=== PATIENT | male | born 1970 | race Caucasian/White ===

== ENCOUNTER 2018-04-01 14:06 | Emergency (ER) | payer BC ==
[2018-04-01] MEDS ORDERED: Levofloxacin 500 MG Tab PO STA (15:06)
[2018-04-01] MEDS ORDERED: Diphtheria,Pertussis(Acell),Tetanus Vaccine 0.5 ML SDV IM ONE (15:06)
--- NOTE | 2018-04-01 15:09 | EDM.PDOC ---
ED HPI GENERAL MEDICAL PROBLEM - General Chief Complaint: Lower Extremity Injury/Pain Stated Complaint: Laceration left forearm Time Seen by Provider: 04/01/18 14:06 Source of Information: Reports: Patient, Family History Limitations: Reports: No Limitations - History of Present Illness INITIAL COMMENTS - FREE TEXT/NARRATIVE: 47 years old w m in prev healthy condition came to the ed with his after he injured his left forearm on a propeller an electric toy plain. 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 Pt does not take ASA or Coumadin or any other blood thinner. Pt has full ROM of his left forearm and denies any other acute medical issue. TD (? ). RIVER 146/90 RR 20 Temp 36.8 Pulse 75 Onset Date: 04/01/18 Onset Time: 13:00 Duration: Hour(s): Location: Reports: Upper Extremity, Left Quality: Reports: Ache, Burning, Dull, Stabbing Severity: Moderate Improves with: Reports: Rest Worsens with: Reports: Movement Context: Reports: Trauma Associated Symptoms: Reports: No Other Symptoms left forearn Pain Score (Numeric/FACES): 4 - Related Data Allergies Allergy/AdvReac Type Severity Reaction Status Date / Time Penicillins Allergy Anaphylactic Verified 04/01/18 14:16 Shock Home Meds: Home Meds Allopurinol [Zyloprim] 300 mg PO DAILY 04/01/18 [History] Ciprofloxacin HCl [Cipro] 500 mg PO BID #20 tablet 04/01/18 [Rx] Past Medical History Musculoskeletal History: Reports: Gout Social & Family History - Family History Family Medical History: Noncontributory - Tobacco Use Smoking Status *Q: Never Smoker - Caffeine Use Caffeine Use: Reports: Soda - Alcohol Use Days Per Week of Alcohol Use: 1 Number of Drinks Per Day: 2 Total Drinks Per Week: 2 - Recreational Drug Use Recreational Drug Use: No Review of Systems - Review of Systems Review Of Systems: See Below Constitutional: Reports: No Symptoms Eyes: Reports: No Symptoms Ears: Reports: No Symptoms Nose: Reports: No Symptoms Mouth/Throat: Reports: No Symptoms Respiratory: Reports: No Symptoms Cardiovascular: Reports: No Symptoms GI/Abdominal: Reports: No Symptoms Genitourinary: Reports: No Symptoms Musculoskeletal: Reports: No Symptoms Skin: Reports: Wound (laceration left forearm) Neurological: Reports: No Symptoms Psychiatric: Reports: No Symptoms ED EXAM, GENERAL - Physical Exam Exam: See Below Exam Limited By: No Limitations General Appearance: Alert, WD/WN, Mild Distress Eye Exam: Bilateral Eye: Normal Inspection Ears: Normal External Exam Ear Exam: Bilateral Ear: Auricle Normal Nose: Normal Inspection, Normal Mucosa Throat/Mouth: Normal Inspection, Normal Lips, Normal Gums, Normal Voice, No Airway Compromise Head: Atraumatic, Normocephalic Neck: Normal Inspection, Supple, Non-Tender, Full Range of Motion Respiratory/Chest: No Respiratory Distress, Lungs Clear, Normal Breath Sounds, No Accessory Muscle Use, Chest Non-Tender Cardiovascular: Normal Peripheral Pulses, Regular Rate, Rhythm, No Edema Peripheral Pulses: 1+: Brachial (R) GI/Abdominal: Normal Bowel Sounds, Soft, Non-Tender (Male) Exam: Deferred Rectal (Males) Exam: Deferred Back Exam: Normal Inspection, Full Range of Motion Extremities: Normal Range of Motion, Normal Capillary Refill, Other ( Lacerations left forearm) Neurological: Alert, Oriented, CN II-XII Intact Psychiatric: Normal Affect, Normal Mood Skin Exam: Warm, Dry, Normal Color Lymphatic: No Adenopathy ED TRAUMA EXTREMITY PROCEDURES - Laceration/Wound Repair Left Posterior Arm Lac/Wound Length In cm: 7 (3 lacerations: 4.5 - 1.5 and 1 cm left forearm, dorsal aspect) Appearance: Subcutaneous, Irregular, Clean Distal NVT: Neuro & Vascular Intact Anesthetic Type: Local Local Anesthesia - Lidocaine (Xylocaine): 2% Plain Local Anesthetic Volume: 5cc Skin Prep: Providone-Iodine (Betadine) Saline Irrigation (cc's): 5 Exploration/Debridement/Repair: Wound Explored, In a Bloodless Field, Explored to Base Closed With: Sutures Suture Size: 4-0 # of Sutures: 10 Suture Type: Other (ethilone) Tetanus Status Addressed: Yes (given today) Complications: No Course - Vital Signs Text/Narrative:: 47 years old w m in prev healthy condition came to the ed with his after he injured his left forearm on a propeller an electric toy plain. 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 Pt does not take ASA or Coumadin or any other blood thinner. Pt has full ROM of his left forearm and denies any other acute medical issue. TD (? ). RIVER 146/90 RR 20 Temp 36.8 Pulse 75 PE: WNWD W M with complex left forearm lacerations, NO FB Procedure note: Please see note above. Imaging: Not indicated Impression: Laceration left forearm, repaired in the ED Tx: Wound repair, TD (Adacel), Levoquin (pt is allegic to PCN) Reexam: Improved Plan: D/C with instructions Last Recorded V/S: Last Vital Signs Temp 36.6 C 04/01/18 15:27 Pulse 57 L 04/01/18 15:27 Resp 18 04/01/18 15:27 BP 149/88 H 04/01/18 15:27 Pulse Ox 100 04/01/18 15:27 - Orders/Labs/Meds Orders: Active Orders 24 hr Category Date Time Status Vaccines to be Administered [RC] PER UNIT ROUTINE Care 04/01/18 15:07 Active Meds: Medications Discontinued Medications Generic Name Dose Route Start Last Admin Trade Name Freq PRN Reason Stop Dose Admin Diphtheria/Tetanus/Acell Pertussis 0.5 ml 04/01/18 15:06 04/01/18 15:22 Adacel IM 04/01/18 15:07 0.5 ml .ONCE ONE Administration Levofloxacin 500 mg 04/01/18 15:06 04/01/18 15:22 Levaquin PO 04/01/18 15:07 500 mg ONETIME STA Administration Departure - Departure Time of Disposition: 15:10 Disposition: Home, Self-Care 01 Condition: Good Clinical Impression: Laceration of forearm, left, complicated Qualifiers: Encounter type: initial encounter Qualified Code(s): S51.812A - Laceration without foreign body of left forearm, initial encounter - Discharge Information Prescriptions: Ciprofloxacin HCl [Cipro] 500 mg PO BID #20 tablet Instructions: Laceration Care, Adult, Ciprofloxacin tablets, Sutured Wound Care , [id number] Referrals: Sav Sifuentes MD [Primary Care Provider] - Forms: ED Department Discharge Additional Instructions: Please leave the wound alone for next 24 hours, please apply neosporine to wound twice daily, starting tomorrow, wound check in 2 days, suture removal in 10 days. Please come back to the ED if your symptoms get worse acutely. - My Orders Last 24 Hours: My Active Orders 04/01/18 15:07 Vaccines to be Administered [RC] PER UNIT ROUTINE - Assessment/Plan Last 24 Hours: My Active Orders 04/01/18 15:07 Vaccines to be Administered [RC] PER UNIT ROUTINE
== END 2018-04-01 15:27 | disposition home or self-care (01) ==
LOC: FB.ED 14:06
DX: S51.812A Laceration without foreign body of left forearm, initial encounter (principal); Z23 Encounter for immunization; Z79.899 Other long term (current) drug therapy; W31.89XA Contact with other specified machinery, initial encounter
CPT/HCPCS: 12002; 90471; 90715; 99283; A9270

== ENCOUNTER 2020-09-16 05:08 | Emergency (ER) | payer BC ==
[2020-09-16] MEDS ORDERED: Morphine 2 MG/ML SYRINGE IM ONE (05:39)
[2020-09-16] MEDS ORDERED: Cyclobenzaprine 10 MG Tab PO ONE (05:39)
--- NOTE | 2020-09-16 05:47 | EDM.PDOC ---
ED HPI GENERAL MEDICAL PROBLEM - General Chief Complaint: Back Pain or Injury Stated Complaint: BACK PAIN Time Seen by Provider: 09/16/20 05:30 Source of Information: Reports: Patient History Limitations: Reports: No Limitations - History of Present Illness INITIAL COMMENTS - FREE TEXT/NARRATIVE: Patient presented to the ED because of acute low back pain which started 3 days ago. He saw a chiropractor who did some manipulation and woke up this morning with more pain. He took Ibuprofen 800 mg and 2 [place] with mild relief of his pain. He has a history of chronic low back and the last time he had a flare up was a year ago. Treatments TIP BANDER: Reports: Acetaminophen, NSAIDS, Other (see below) Lower back pain Pain Score (Numeric/FACES): 9 - Related Data Allergies Allergy/AdvReac Type Severity Reaction Status Date / Time Penicillins Allergy Anaphylactic Verified 09/16/20 05:14 Shock Home Meds: Home Meds allopurinoL [Zyloprim] 300 mg PO DAILY 04/01/18 [History] Cyclobenzaprine [Flexeril] 10 mg PO TID PRN #30 tab 09/16/20 [Rx] Ibuprofen 800 mg PO TID PRN #30 tablet 09/16/20 [Rx] tadalafiL [Tadalafil] 10 mg ASDIRECTED PRN 09/16/20 [History] traMADol [Ultram] 100 mg PO TID #15 tab 09/16/20 [Rx] Past Medical History Musculoskeletal History: Reports: Fracture, Gout Other Musculoskeletal History: hx fx L wrist, Neurological History: Reports: Concussion Endocrine/Metabolic History: Reports: Obesity/BMI 30+ - Infectious Disease History Infectious Disease History: Reports: Novel Coronavirus - Past Surgical History Musculoskeletal Surgical History: Reports: Carpal Tunnel, Other (See Below) Other Musculoskeletal Surgeries/Procedures:: carpal tunnel R wrist, tennis elbow surgery R Social & Family History - Family History Family Medical History: No Pertinent Family History - Tobacco Use Tobacco Use Status *Q: Never Tobacco User - Caffeine Use Caffeine Use: Reports: Coffee - Alcohol Use Days Per Week of Alcohol Use: 2 Number of Drinks Per Day: 2 Total Drinks Per Week: 4 - Recreational Drug Use Recreational Drug Use: No ED ROS GENERAL - Review of Systems Review Of Systems: See Below Constitutional: Reports: No Symptoms HEENT: Reports: No Symptoms Respiratory: Reports: No Symptoms Cardiovascular: Reports: No Symptoms Endocrine: Reports: No Symptoms GI/Abdominal: Reports: No Symptoms : Reports: No Symptoms Musculoskeletal: Reports: Back Pain, Muscle Pain, Muscle Stiffness Skin: Reports: No Symptoms Neurological: Reports: No Symptoms Psychiatric: Reports: No Symptoms Hematologic/Lymphatic: Reports: No Symptoms ED EXAM,LOWER BACK PAIN/INJURY - Physical Exam Exam: See Below Exam Limited By: No Limitations General Appearance: Alert, No Apparent Distress Ears: Normal External Exam, Normal [place] Nose: Normal Inspection, Normal Mucosa Throat/Mouth: Normal Inspection, Normal Lips, Normal Teeth Head: Atraumatic, Normocephalic Neck: Normal Inspection, Supple, Non-Tender, Full Range of Motion Respiratory/Chest: No Respiratory Distress, Lungs Clear, Normal Breath Sounds Cardiovascular: Normal Peripheral Pulses, Regular Rate, Rhythm, No Edema GI/Abdominal: Normal Bowel Sounds, Soft, Non-Tender, No Organomegaly Back Exam: Normal Inspection, Muscle Spasm, Paraspinal Tenderness Extremities: Normal Inspection, Normal Range of Motion Course - Vital Signs Text/Narrative:: Morphine 2 mg IM x1 Lidoderm patch Flexeril 10 mg PO x1 Last Recorded V/S: Last Vital Signs Temp 36.6 C 09/16/20 05:08 Pulse 71 09/16/20 05:08 Resp 18 09/16/20 05:08 BP 155/92 H 09/16/20 05:08 Pulse Ox 97 09/16/20 05:08 - Orders/Labs/Meds Orders: Active Orders 24 hr Category Date Time Status Lidocaine 4% [Aspercreme 4%] Med 09/16/20 05:55 Stat 1 each TOP NOW STA Meds: Medications Discontinued Medications Generic Name Dose Route Start Last Admin Trade Name Freq PRN Reason Stop Dose Admin Cyclobenzaprine HCl 10 mg 09/16/20 05:39 Flexeril PO 09/16/20 05:40 ONETIME ONE Lidocaine 1 each 09/16/20 05:55 Aspercreme 4% TOP 09/16/20 05:56 NOW STA Morphine Sulfate 2 mg 09/16/20 05:39 Morphine IM 09/16/20 05:40 ONETIME ONE Departure - Departure Time of Disposition: 06:00 Disposition: Home, Self-Care 01 Condition: Good Clinical Impression: Chronic low back pain - Discharge Information Prescriptions: Cyclobenzaprine [Flexeril] 10 mg PO TID PRN #30 tab PRN Reason: Spasms Ibuprofen 800 mg PO TID PRN #30 tablet PRN Reason: Pain traMADol [Ultram] 100 mg PO TID #15 tab Instructions: Chronic Back Pain Referrals: Sav Sifuentes MD [Primary Care Provider] - Forms: ED Department Discharge Additional Instructions: Please read discharge instructions on chronic low back pain Apply ice or heat whichever makes the pain feel better Remove the patch after 24 hours Do not apply heat on top of the lidoderm patch Take the following medicines all at the same time for better pain relief Ibuprofen 800 mg, tylenol 1000 mg, tramadol 100 mg and flexeril 10 mg 3 times daily as needed for pain and muscle spasm Follow up as needed Sepsis Event Note (ED) - Evaluation Sepsis Screening Result: No Definite Risk - Focused Exam Vital Signs: Vital Signs Temp Pulse Resp BP Pulse Ox 09/16/20 05:08 36.6 C 71 18 155/92 H 97 - My Orders Last 24 Hours: My Active Orders 09/16/20 05:55 Lidocaine 4% [Aspercreme 4%] 1 each TOP NOW STA - Assessment/Plan Last 24 Hours: My Active Orders 09/16/20 05:55 Lidocaine 4% [Aspercreme 4%] 1 each TOP NOW STA
[2020-09-16] MEDS ORDERED: Lidocaine 4% 1 each Patch TOP STA (05:55)
[2020-09-16] MEDS ORDERED: Lidocaine 4% 1 each Patch ONE (06:21)
[2020-09-16] MEDS ORDERED: Lidocaine 4% 1 each Patch TOP ONE (06:25)
[2020-09-16] MEDS ORDERED: Lidocaine 4% 1 each Patch TOP SCH (09:00)
== END 2020-09-16 06:38 | disposition home or self-care (01) ==
LOC: FB.ED 05:08
DX: G89.29 Other chronic pain (principal); M54.5 Low back pain; E66.9 Obesity, unspecified; Z68.41 Body mass index [BMI] 40.0-44.9, adult; Z86.19 Personal history of other infectious and parasitic diseases; Z88.0 Allergy status to penicillin
CPT/HCPCS: 96372; 99283; A9270-GY; J2270

== ENCOUNTER 2022-12-16 06:16 | Day surgery (SDC) | payer BC ==
[~2022-12-16 06:16] MED LIST: Lactated Ringers 1,000 ML IV SCH; Sodium Chloride 0.9% 10 ML Syringe FLUSH PRN
[2022-12-16] MEDS ORDERED: Labetalol 100 MG/20 ML MDV IV ONE (06:17)
[2022-12-16] MEDS ORDERED: Propofol 200 MG/20 ML SDV IV ONE (06:17)
== END 2022-12-16 09:13 | disposition home or self-care (01) ==
LOC: FB.SDS 06:16
PROVIDERS: ATTEND Surgery
DX: Z12.11 Encounter for screening for malignant neoplasm of colon (principal); D12.8 Benign neoplasm of rectum; M10.9 Gout, unspecified; Z79.899 Other long term (current) drug therapy; Z88.0 Allergy status to penicillin; Z98.890 Other specified postprocedural states; Z87.891 Personal history of nicotine dependence
CPT/HCPCS: 00812; 88305; J2704; J3490; J7120